=== PATIENT | male | born 1970 | race Caucasian/White ===

== ENCOUNTER 2018-11-09 22:35 | Observation (INO) | payer MEDICARE, OTHER ==
[2018-11-09] MEDS ORDERED: SODIUM CHLORIDE 0.9% 1,000 ML IV STA (22:43)
[2018-11-09] MEDS ORDERED: ASPIRIN 81 MG PO STA (22:43)
[2018-11-09 23:05] LABS: Basophils # (A) 0.1 k/uL (0-0.2); Basophils % (A) 1 %; Eosinophils # (A) 0.7 k/uL (0-0.7); Eosinophils % (A) 8 %; HCT 39.8 % (39.0-53.0); HGB 12.3 gm/dL (13.0-17.5); Hypochromasia Moderate; Lymphocytes # (A) 2.5 k/uL (1.0-4.8); Lymphocytes % (A) 29 %; MCH 25.9 pg (25.0-35.0); MCHC 30.9 g/dL (31.0-37.0); Mean Platelet Volume 8.3; Monocytes # (A) 0.7 k/uL (0-1.0); Monocytes % (A) 8 %; Neutrophils # (A) 4.6 k/uL (1.3-7.7); Neutrophils % (A) 52 %; Platelet Count 227 k/uL (150-450); RBC 4.74 m/uL (4.30-5.90); RDW 15.6 % (11.5-15.5); WBC 8.7 k/uL (3.8-10.6)
[2018-11-09 23:09] LABS: ALT 7 U/L (21-72); AST 11 U/L (17-59); African American GFR (CKD) >90 (>60 ml/min/1.73 sqM); Albumin 3.8 g/dL (3.5-5.0); Alkaline Phosphatase 87 U/L (38-126); Anion Gap 8 mmol/L; Blood Urea Nitrogen 10 mg/dL (9-20); Calcium 9.4 mg/dL (8.4-10.2); Carbon Dioxide 20 mmol/L (22-30); Chloride 112 mmol/L (98-107); Glucose 137 mg/dL (74-99); Lipase 158 U/L (23-300); Magnesium 2.2 mg/dL (1.6-2.3); Potassium 3.9 mmol/L (3.5-5.1); Sodium 140 mmol/L (137-145); Total Bilirubin 0.3 mg/dL (0.2-1.3); Total Protein 6.3 g/dL (6.3-8.2)
[2018-11-09 23:10] LABS: INR 0.9 (<1.2); Partial Thromboplastin Time 23.1 sec (22.0-30.0); Prothrombin Time 9.7 sec (9.0-12.0)
--- NOTE | 2018-11-09 23:18 | XR ---
EXAM: XR Chest, 2 Views CLINICAL HISTORY: Chest pain TECHNIQUE: Frontal and lateral views of the chest. COMPARISON: No relevant prior studies available. FINDINGS: Lungs: Unremarkable. No consolidation. Pleural space: Unremarkable. No pneumothorax. Heart: See below. Mediastinum: Unremarkable. Bones/joints: Evidence of median sternotomy and probable CABG. IMPRESSION: No acute findings.
[2018-11-09] MEDS ORDERED: MORPHINE SULFATE 4 MG/ML SYRINGE IVP STA (23:31)
[2018-11-09] MEDS ORDERED: NITROGLYCERIN OINT 1 INCH/GM PACKET TOPICAL STA (23:32)
[2018-11-09] MEDS ORDERED: HEPARIN SOD,PORK IN 0.45% NACL 25,000 UNIT in 0.45% NACL 1 250ML.BAG IV SCH (23:45)
[2018-11-09] MEDS ORDERED: HEPARIN SODIUM,PORCINE 5,000 UNIT/ML 1 ML VIAL IV PRN (23:56)
--- NOTE | 2018-11-10 00:07 | ED ---
Chest Pain HPI - General Chief Complaint: Chest Pain Stated Complaint: Chest pain Time Seen by Provider: 11/09/18 22:43 Source: patient Mode of arrival: wheelchair Limitations: no limitations - History of Present Illness Initial Comments: Rony is a 38-year-old gentleman with a past medical history of known coronary artery disease status post multiple stents and a CABG in the past. Patient presents to the emergency department today for evaluation of sudden onset of pressure-like chest pain which began while driving. Patient reports that he was driving home when he began experiencing this pain, pain is similar to previous cardiac chest pains or discitis. For evaluation. Patient describes the pain as sharp and pressure-like, retrosternal in location, no relieving or exacerbating factors that he has noticed since onset. He did take nitro with minimal improvement. She reports that his last LA was in January. Patient denies any associated fevers, chills, shortness of breath or palpitations. He denies any recent illness. Patient reports that he is compliant with all his medications and reports that he is on baby aspirin and full dose aspirin daily, Plavix and Xarelto. - Related Data Home Medications Medication Instructions Recorded Confirmed Aspirin EC [Ecotrin Low Dose] 81 mg PO DAILY 11/09/18 11/09/18 Atorvastatin [Lipitor] 40 mg PO HS 11/09/18 11/09/18 Clopidogrel Bisulfate [Plavix] 75 mg PO DAILY 11/09/18 11/09/18 Lisinopril [Prinivil] 5 mg PO DAILY 11/09/18 11/09/18 Rivaroxaban [Xarelto] 20 mg PO W/SUPPER 11/09/18 11/09/18 fentaNYL 25MCG/HR PATCH [Duragesic 1 patch TRANSDERM Q72H 11/09/18 11/09/18 25MCG/HR] metFORMIN HCL [Glucophage] 850 mg PO DAILY 11/09/18 11/09/18 Allergies Allergy/AdvReac Type Severity Reaction Status Date / Time cyclobenzaprine Allergy Rash/Hives Verified 11/09/18 23:28 [From Flexeril] Iodinated Contrast- Oral and Allergy Rash/Hives Verified 11/09/18 23:28 IV Dye tramadol Allergy Rash/Hives Verified 11/09/18 23:28 Review of Systems ROS Statement: Those systems with pertinent positive or pertinent negative responses have been documented in the HPI. ROS Other: All systems not noted in ROS Statement are negative. EKG Findings - EKG Comments: EKG Findings:: EKG was obtained at 2248 for evaluation of chest pain. EKG with a rate of 100 rhythm is sinus with PVC noted, there is normal axis, there are normal intervals, NV 140, QRS 84, QTC 490 there are no acute ST elevations or depressions no evidence of acute ischemia there is T-wave inversions in V3 through V6. There are no previous EKGs for comparison. Past Medical History Past Medical History: Diabetes Mellitus, Hyperlipidemia, Hypertension, Myocard ial Infarction ([place]) History of Any Multi-Drug Resistant Organisms: None Reported Past Surgical History: Coronary Bypass/CABG, Orthopedic Surgery Past Psychological History: No Psychological Hx Reported Smoking Status: Current every day smoker Past Alcohol Use History: None Reported Past Drug Use History: None Reported General Exam - General Exam Comments Initial Comments: Physical Exam GENERAL: Patient is well-developed and well-nourished. Patient is nontoxic and well-hydrated, appears uncomfortable HENT: Normocephalic, Atraumatic. EYES: PERRL, EOMI PULMONARY: Unlabored respirations. No audible rales rhonchi or wheezing was noted. CARDIOVASCULAR: There is a regular rate and rhythm without any murmurs gallops or rubs. ABDOMEN: Soft and nontender with normal bowel sounds. SKIN: Skin is clear with no lesions or rashes and otherwise unremarkable. : Deferred NEUROLOGIC: Patient is alert and oriented x3. Moving all extremities spontaneously MUSCULOSKELETAL: Normal extremities with adequate strength and full range of motion. No lower extremity swelling or edema. No calf tenderness. PSYCHIATRIC: Normal psychiatric evaluation. Limitations: no limitations Limitations: no limitations Course Vital Signs 11/09/18 11/09/18 11/10/18 22:37 23:30 01:02 Temperature 98.4 F Pulse Rate 98 96 90 Respiratory 18 21 18 Rate Blood Pressure 116/81 139/91 111/90 O2 Sat by Pulse 97 99 97 Oximetry Chest Pain MDM - MDM The patient was seen and evaluated, history of same from the patient 48-year-old gentleman with extensive cardiac history presenting with sudden onset of chest pain that developed while he was driving. Patient took nitro with a little bit of relief in his chest pain but decided stop the hospital for evaluation. Cardiac workup was initiated EKG is nonischemic Labs and imaging were unremarkable patient is having persistent chest pain despite nitro paste and morphine. Patient will be started on heparin and admitted hospital for serial troponins. Patient is on oral anti-coagulated indication was her alto and Plavix per the patient and therefore bolus of heparin will not be ordered just a maintenance dose. Patient was admitted to Dr. Chinchilla with cardiology on consult. Critical Care Time Critical Care Time: Yes Total Critical Care Time: 30 Disposition Clinical Impression: Chest pain Disposition: ADMITTED IP TO THIS HOSP Condition: Stable
[2018-11-10] MEDS ORDERED: NITROGLYCERIN SL TABS 0.4 MG TAB SUBLINGUAL PRN (00:18)
[2018-11-10] MEDS ORDERED: ACETAMINOPHEN TAB 325 MG TAB PO PRN (00:28)
[2018-11-10] MEDS: MORPHINE SULFATE 4 MG/ML SYRINGE IV PRN ×3 (00:59→06:49)
[2018-11-10 01:51] VITALS: BMI 25.0
[2018-11-10] MEDS ORDERED: Potassium Replacement Protocol 1 EACH MISC MISCELLANE PRN (04:26)
[2018-11-10] MEDS ORDERED: HYDROmorphone 1 MG/ML 1 ML SYRINGE IVP STA (04:59)
[2018-11-10] MEDS ORDERED: POTASSIUM CHLORIDE ER 20 MEQ TAB.ER PO SCH (05:00)
[2018-11-10 05:02] LABS: Basophils # (A) 0.1 k/uL (0-0.2); Basophils % (A) 1 %; Eosinophils # (A) 0.5 k/uL (0-0.7); Eosinophils % (A) 7 %; HCT 36.7 % (39.0-53.0); HGB 11.4 gm/dL (13.0-17.5); Hypochromasia Marked; Lymphocytes # (A) 2.2 k/uL (1.0-4.8); Lymphocytes % (A) 28 %; MCH 26.4 pg (25.0-35.0); MCHC 30.9 g/dL (31.0-37.0); MCV 85.2 fL (80.0-100.0); Mean Platelet Volume 8.7; Monocytes # (A) 0.6 k/uL (0-1.0); Monocytes % (A) 8 %; Neutrophils # (A) 4.3 k/uL (1.3-7.7); Neutrophils % (A) 55 %; Platelet Count 181 k/uL (150-450); RBC 4.31 m/uL (4.30-5.90); RDW 15.6 % (11.5-15.5); WBC 7.8 k/uL (3.8-10.6)
[2018-11-10 05:25] VITALS: BP 102/71; PULSE 94; RESP 16; TEMP 97.1
[2018-11-10] MEDS ORDERED: NITROGLYCERIN OINT 1 INCH/GM PACKET TOPICAL SCH (06:00)
[2018-11-10 06:01] LABS: D-Dimer 1.45 mg/L FEU (<0.60); Partial Thromboplastin Time 34.7 sec (22.0-30.0)
[2018-11-10 07:14] LABS: Glucose,Whole Blood 89 mg/dL (75-99)
[2018-11-10 12:37] LABS: Hemoglobin A1C 6.4 % (4.0-6.0)
[2018-11-11] MEDS ORDERED: ASPIRIN 325 MG TAB PO SCH (09:00)
--- NOTE | 2018-11-11 15:20 | P.DS ---
Providers Date of admission: 11/10/18 00:18 Expected date of discharge: 11/10/18 Attending physician: Yelena Kern Consults: 11/10/18 00:18 Consult Physician Urgent Consulting Provider: [facility] Consult Reason/Comments: chest pain, known CAD Do you want consulting provider notified?: Yes, Notify in am Primary care physician: Physician Nonstaff Patient Condition at Discharge: Stable Plan - Discharge Summary Discharge Rx Participant: No New Discharge Prescriptions: No Action metFORMIN HCL [Glucophage] 850 mg PO DAILY fentaNYL 25MCG/HR PATCH [Duragesic 25MCG/HR] 1 patch TRANSDERM Q72H Lisinopril [Prinivil] 5 mg PO DAILY Atorvastatin [Lipitor] 40 mg PO HS Rivaroxaban [Xarelto] 20 mg PO W/SUPPER Clopidogrel Bisulfate [Plavix] 75 mg PO DAILY Aspirin EC [Ecotrin Low Dose] 81 mg PO DAILY Discharge Medication List Aspirin EC [Ecotrin Low Dose] 81 mg PO DAILY 11/09/18 [History] Atorvastatin [Lipitor] 40 mg PO HS 11/09/18 [History] Clopidogrel Bisulfate [Plavix] 75 mg PO DAILY 11/09/18 [History] Lisinopril [Prinivil] 5 mg PO DAILY 11/09/18 [History] Rivaroxaban [Xarelto] 20 mg PO W/SUPPER 11/09/18 [History] fentaNYL 25MCG/HR PATCH [Duragesic 25MCG/HR] 1 patch TRANSDERM Q72H 11/09/18 [History] metFORMIN HCL [Glucophage] 850 mg PO DAILY 11/09/18 [History] Follow up Appointment(s)/Referral(s): Nonstaff,Physician [Primary Care Provider] - 1-2 days Discharge Disposition: Left Against Medical Advice
--- NOTE | 2018-11-11 15:20 | P.HPIM ---
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 8 stents total, AAA Past Anesthesia/Blood Transfusion Reactions: No Reported Reaction Past Psychological History: No Psychological Hx Reported Smoking Status: Current every day smoker Past Alcohol Use History: None Reported Past Drug Use History: None Reported - Past Family History Mother Family Medical History: No Reported History Father Family Medical History: Cancer, Congestive Heart Failure (CHF), Coronary Artery Disease (CAD) Additional Family Medical History / Comment(s): father with NC. Medications and Allergies Home Medications Medication Instructions Recorded Confirmed Type Aspirin EC [Ecotrin Low Dose] 81 mg PO DAILY 11/09/18 11/09/18 History Atorvastatin [Lipitor] 40 mg PO HS 11/09/18 11/09/18 History Clopidogrel Bisulfate [Plavix] 75 mg PO DAILY 11/09/18 11/09/18 History Lisinopril [Prinivil] 5 mg PO DAILY 11/09/18 11/09/18 History Rivaroxaban [Xarelto] 20 mg PO W/SUPPER 11/09/18 11/09/18 History fentaNYL 25MCG/HR PATCH [Duragesic 1 patch TRANSDERM Q72H 11/09/18 11/09/18 History 25MCG/HR] metFORMIN HCL [Glucophage] 850 mg PO DAILY 11/09/18 11/09/18 History Allergies Allergy/AdvReac Type Severity Reaction Status Date / Time cyclobenzaprine Allergy Rash/Hives Verified 11/09/18 23:28 [From Flexeril] Iodinated Contrast- Oral and Allergy Rash/Hives Verified 11/09/18 23:28 IV Dye tramadol Allergy Rash/Hives Verified 11/09/18 23:28 Results CBC & Chem 7: 11/10/18 04:48 11/09/18 22:50 Thrombosis Risk Factor Assmnt - Choose All That Apply Any of the Below Risk Factors Present?: Yes Each Factor Represents 1 point: Acute NC, Age 41-60 years Other Risk Factors: Yes Each Risk Factor Represents 3 Points: Positive Factor V Leiden, History of DVT/PE Other congenital or acquired thrombophilia - If yes, enter type in comment: No Thrombosis Risk Factor Assessment Total Risk Factor Score: 8 Thrombosis Risk Factor Assessment Level: High Risk
== END 2018-11-10 07:58 | disposition left against medical advice (07) ==
LOC: EC 22:35 → 1SOBS 11-10 00:18
PROVIDERS: ADMIT Internal Medicine; ATTEND Internal Medicine
DX: R07.89 Other chest pain (principal); I10 Essential (primary) hypertension; E78.5 Hyperlipidemia, unspecified; E11.9 Type 2 diabetes mellitus without complications; F17.200 Nicotine dependence, unspecified, uncomplicated; D68.2 Hereditary deficiency of other clotting factors; D68.51 Activated protein C resistance; Z79.82 Long term (current) use of aspirin; Z79.02 Long term (current) use of antithrombotics/antiplatelets; Z79.01 Long term (current) use of anticoagulants; Z79.84 Long term (current) use of oral hypoglycemic drugs; Z79.891 Long term (current) use of opiate analgesic; Z79.899 Other long term (current) drug therapy; Z88.5 Allergy status to narcotic agent; Z88.8 Allergy status to other drugs, medicaments and biological substances; Z91.041 Radiographic dye allergy status; I25.2 Old myocardial infarction; Z95.1 Presence of aortocoronary bypass graft; Z95.5 Presence of coronary angioplasty implant and graft; Z86.79 Personal history of other diseases of the circulatory system; Z86.718 Personal history of other venous thrombosis and embolism; Z82.49 Family history of ischemic heart disease and other diseases of the circulatory system; Z80.9 Family history of malignant neoplasm, unspecified
CPT/HCPCS: 96366; 96376 ×2; 96361; 96365; 96375; 99291; 36415; 93005 ×2; 85379; 83880; 80053; 83690; 83735; 84484 ×2; 85025 ×2; 85610; 85730 ×2; 83036; 71046; G0378; J2270 ×2; J1170; J1644

== ENCOUNTER 2019-03-17 20:22 | Observation (INO) | payer MEDICARE, OTHER ==
[2019-03-17 20:26] VITALS: TEMP 97.9
--- NOTE | 2019-03-17 20:34 | ED ---
Chest Pain HPI - General Chief Complaint: Chest Pain Stated Complaint: Chest pain Time Seen by Provider: 03/17/19 20:33 Source: patient, RN notes reviewed, old records reviewed Mode of arrival: wheelchair Limitations: no limitations - History of Present Illness Initial Comments: This is a 49-year-old male the ER for evaluation patient is today for evaluation of severe chest pain left-sided chest pain. Patient is competent medical history on blood thinners secondary to blood clotting disorder and history of DVT. Patient also has abdominal aneurysm with no recent evaluation coming with chest pain with prior history of PA and CABG this feels similar to prior PA. Patient states he was very diaphoretic and short of breath with this chest pain when it started always improve with nitro per EMS. Chest pain is still persistent in requesting pain medication. No current shortness of breath or sweating. MD Complaint: chest pain (Left-sided) -: hour(s) Onset: during rest Pain Location: left chest Pain Radiation: LUE Severity: moderate Severity scale (1-10): 4 Quality: tightness, heaviness Consistency: other (Improving) Improves With: nitroglycerin Worsens With: exertion, inspiration Anginal Symptoms: diaphoresis, dyspnea, sense of impending doom Other Symptoms: palpitations Treatments Prior to Arrival: none - Related Data Home Medications Medication Instructions Recorded Confirmed Aspirin EC [Ecotrin Low Dose] 81 mg PO QAM 11/09/18 03/17/19 Atorvastatin [Lipitor] 40 mg PO HS 11/09/18 03/17/19 Clopidogrel Bisulfate [Plavix] 75 mg PO DAILY 11/09/18 03/17/19 Lisinopril [Prinivil] 5 mg PO DAILY 11/09/18 03/17/19 Rivaroxaban [Xarelto] 20 mg PO W/SUPPER 11/09/18 03/17/19 metFORMIN HCL [Glucophage] 850 mg PO DAILY 11/09/18 03/17/19 Aspirin EC [Ecotrin] 325 mg PO DAILY@1700 03/17/19 03/17/19 fentaNYL 50MCG/HR PATCH [Duragesic 1 patch TRANSDERM Q72H 03/17/19 03/17/19 50MCG/HR] Allergies Allergy/AdvReac Type Severity Reaction Status Date / Time cyclobenzaprine Allergy Rash/Hives Verified 03/17/19 20:54 [From Flexeril] Iodinated Contrast Media Allergy Rash/Hives Verified 03/17/19 20:54 [Iodinated Contrast- Oral and IV Dye] tramadol Allergy Rash/Hives Verified 03/17/19 20:54 Review of Systems ROS Statement: Those systems with pertinent positive or pertinent negative responses have been documented in the HPI. ROS Other: All systems not noted in ROS Statement are negative. 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 8 stents total, AAA Past Anesthesia/Blood Transfusion Reactions: No Reported Reaction Past Psychological History: No Psychological Hx Reported Smoking Status: Current every day smoker Past Alcohol Use History: None Reported Past Drug Use History: None Reported - Past Family History Mother Family Medical History: No Reported History Father Family Medical History: Cancer, Congestive Heart Failure (CHF), Coronary Artery Disease (CAD) Additional Family Medical History / Comment(s): father with PA. General Exam Limitations: no limitations General appearance: alert, in no apparent distress, anxious Head exam: Present: atraumatic, normocephalic, normal inspection Eye exam: Present: normal appearance, PERRL, EOMI. Absent: scleral icterus, conjunctival injection, periorbital swelling ENT exam: Present: normal exam, mucous membranes moist Neck exam: Present: normal inspection. Absent: tenderness, meningismus, lymphadenopathy Respiratory exam: Present: normal lung sounds bilaterally. Absent: respiratory distress, wheezes, rales, rhonchi, stridor Cardiovascular Exam: Present: regular rate, normal rhythm, normal heart sounds. Absent: systolic murmur, diastolic murmur, rubs, gallop, clicks GI/Abdominal exam: Present: soft, normal bowel sounds. Absent: distended, tenderness, guarding, rebound, rigid Extremities exam: Present: normal inspection, full ROM, normal capillary refill. Absent: tenderness, pedal edema, joint swelling, calf tenderness Back exam: Present: normal inspection Neurological exam: Present: alert, oriented X3, CN II-XII intact Psychiatric exam: Present: normal affect, normal mood Skin exam: Present: warm, dry, intact, normal color. Absent: rash Course Vital Signs 03/17/19 03/17/19 03/17/19 20:23 20:42 22:00 Temperature 97.9 F Pulse Rate 93 91 89 Respiratory 16 18 18 Rate Blood Pressure 127/79 122/86 109/90 O2 Sat by Pulse 100 100 100 Oximetry - Reevaluation(s) Reevaluation #1: 03/17/19 22:21 Clinical record is reviewed including multiple prior EKG Reevaluation #2: 03/17/19 22:21 Patient still with chest pain - Consultations Consultation #1: spoke with Dr. Bettencourt who is okay for admission Chest Pain MDM - MDM 49 male history of CAD will admit for chest pain, patient admitted for chest pain observation multiple EKGs done here in the ER with no change. Troponin is mildly bumped but not significant Critical Care Time Critical Care Time: Yes Total Critical Care Time: 31 Disposition Clinical Impression: Chest pain Disposition: ADMITTED IP TO THIS [facility] Condition: Undetermined Instructions (If sedation given, give patient instructions): Chest Pain (ED) Is patient prescribed a controlled substance at d/c from ED?: No Referrals: Nonstaff,Physician [Primary Care Provider] - 1-2 days
[2019-03-17] MEDS ORDERED: SODIUM CHLORIDE 0.9% 1,000 ML IV STA (20:47)
[2019-03-17] MEDS ORDERED: ASPIRIN 81 MG PO STA (20:47)
[2019-03-17 20:49] VITALS: RESP 18
[2019-03-17] MEDS ORDERED: METOPROLOL TARTRATE 5 MG/5 ML VIAL IVP STA (20:50)
[2019-03-17] MEDS ORDERED: MORPHINE SULFATE 4 MG/ML SYRINGE IVP STA ×2 (20:51→22:26)
[2019-03-17 21:15] LABS: Albumin 4.1 g/dL (3.5-5.0); Calcium 9.1 mg/dL (8.4-10.2); Magnesium 2.1 mg/dL (1.6-2.3); Total Bilirubin 0.4 mg/dL (0.2-1.3); Total Protein 6.8 g/dL (6.3-8.2)
[2019-03-17 21:17] LABS: Anisocytosis Slight; Basophils # (A) 0.2 k/uL (0-0.2); Basophils % (A) 2 %; Eosinophils # (A) 0.6 k/uL (0-0.7); Eosinophils % (A) 6 %; HCT 41.9 % (39.0-53.0); HGB 12.5 gm/dL (13.0-17.5); Hypochromasia Marked; Lymphocytes # (A) 2.1 k/uL (1.0-4.8); Lymphocytes % (A) 23 %; MCH 24.8 pg (25.0-35.0); MCHC 29.8 g/dL (31.0-37.0); MCV 83.1 fL (80.0-100.0); Mean Platelet Volume 7.1; Monocytes # (A) 0.8 k/uL (0-1.0); Monocytes % (A) 9 %; Neutrophils # (A) 5.4 k/uL (1.3-7.7); Neutrophils % (A) 58 %; Platelet Count 243 k/uL (150-450); RBC 5.04 m/uL (4.30-5.90); RDW 16.5 % (11.5-15.5); WBC 9.4 k/uL (3.8-10.6)
[2019-03-17 21:28] LABS: INR 0.8 (<1.2); Partial Thromboplastin Time 23.8 sec (22.0-30.0); Prothrombin Time 9.3 sec (9.0-12.0)
[2019-03-17 21:34] LABS: Potassium 4.8 mmol/L (3.5-5.1)
--- NOTE | 2019-03-17 22:05 | XR ---
EXAMINATION: XR chest 2V DATE AND TIME: 03/17/2019 9:17 PM CLINICAL INDICATION: PHH; Chest Pain TECHNIQUE: Departmental protocol COMPARISON: 11/09/2018 FINDINGS: Sternal sutures, mediastinal clips, coronary stents, and EKG leads noted. The lungs are clear. The pleural spaces are negative. The cardiac silhouette is not enlarged. The remainder of the mediastinal silhouette is unremarkable. The skeletal structures and soft tissues are negative for acute findings. IMPRESSION: NO ACUTE PROCESS.
[2019-03-17 22:15] VITALS: BP 109/90; PULSE 89
[2019-03-17] MEDS ORDERED: NITROGLYCERIN SL TABS 0.4 MG TAB SUBLINGUAL PRN (22:54)
[2019-03-18] MEDS ORDERED: MORPHINE SULFATE 2 MG/ML SYRINGE ONE ×2 (01:06→01:07)
--- NOTE | 2019-03-18 07:37 | P.PN ---
Progress Note - Text Progress Note Date: 03/18/19 patient left AMA before being seen
[2019-03-18] MEDS ORDERED: METOPROLOL TARTRATE 25 MG TAB PO SCH (09:00)
[2019-03-18] MEDS ORDERED: ASPIRIN 325 MG TAB PO SCH (09:00)
== END 2019-03-18 04:00 | disposition left against medical advice (07) ==
LOC: EC 20:22 → 1SOBS 22:54
PROVIDERS: ADMIT Internal Medicine; ATTEND Internal Medicine
DX: R07.89 Other chest pain (principal); R61 Generalized hyperhidrosis; R06.02 Shortness of breath; R00.2 Palpitations; I71.4 Abdominal aortic aneurysm, without rupture; I10 Essential (primary) hypertension; E78.5 Hyperlipidemia, unspecified; E11.9 Type 2 diabetes mellitus without complications; I25.10 Atherosclerotic heart disease of native coronary artery without angina pectoris; R79.89 Other specified abnormal findings of blood chemistry; D68.2 Hereditary deficiency of other clotting factors; F17.200 Nicotine dependence, unspecified, uncomplicated; Z86.718 Personal history of other venous thrombosis and embolism; Z79.82 Long term (current) use of aspirin; Z79.84 Long term (current) use of oral hypoglycemic drugs; Z79.01 Long term (current) use of anticoagulants; Z79.02 Long term (current) use of antithrombotics/antiplatelets; Z79.899 Other long term (current) drug therapy; Z79.891 Long term (current) use of opiate analgesic; Z88.5 Allergy status to narcotic agent; Z88.8 Allergy status to other drugs, medicaments and biological substances; Z91.041 Radiographic dye allergy status; I25.2 Old myocardial infarction; Z95.1 Presence of aortocoronary bypass graft; Z95.5 Presence of coronary angioplasty implant and graft; Z82.49 Family history of ischemic heart disease and other diseases of the circulatory system; Z80.9 Family history of malignant neoplasm, unspecified; Z53.29 Procedure and treatment not carried out because of patient's decision for other reasons
CPT/HCPCS: 96376; 96374; 96375; 99291; 36415; 93005; 83880; 80053; 82550; 83690; 83735; 84484 ×2; 85025; 85610; 85730; 71046; G0378 ×2; J2270 ×2